=== PATIENT | female | born 1980 ===

== ENCOUNTER 2018-02-19 12:26 | Inpatient (IN) | payer OTHER ==
[~2018-02-19] VITALS: Ht 160 cm; Wt 59.9 kg
[2018-03-01] MEDS ORDERED: CODE1TAB37 PO (13:50)
== END 2018-03-01 14:34 | DRG 743 ==
LOC: SURG-SUITE 02-26 05:58 → O/R 02-26 05:58 → SURG-SUITE 02-26 11:52 → O/R 02-26 12:25 → OB/GYN 02-26 12:41 → SURG-SUITE 02-26 12:43 → O/R 02-26 14:45 → SURG-SUITE 03-01 14:34
PROVIDERS: Obstetrics & Gynecology
PROC: 0UT00ZZ Resection of Right Ovary, Open Approach (ICD-10-PCS; 2018-02-26)
PROC: 0UT50ZZ Resection of Right Fallopian Tube, Open Approach (ICD-10-PCS; principal; 2018-02-26 14:45)
DX: D27.0 Benign neoplasm of right ovary (principal)